=== PATIENT | female | born 1985 | race Caucasian/White ===

== ENCOUNTER → 2021-04-15 | Day surgery (SDC) | payer OTHER ==
[~2021-04-15] MED LIST: COLACE 100MG C100 MG PO; IBUPROFEN600 MG PO; LORTAB 5-325 M1 EACH PO; MAGOX 400400 MG PO; PRENATAL VITAM1 EAC8 PO; TYLENOL 500 MG500 MG PO
[2021-04-15 11:34] LABS: HEMOGLOBIN 14.5 gm/dl (12.3-15.3); RED BLOOD COUNT 5.1 M/UL (4.00-5.10); WHITE BLOOD COUNT 4.9 K/UL (4.5-11.0)
== END | disposition home or self-care (01) ==
LOC: OR 08:15
PROVIDERS: Obstetrics & Gynecology
DX: N80.4 Endometriosis of rectovaginal septum and vagina (principal); G89.18 Other acute postprocedural pain; K21.9 Gastro-esophageal reflux disease without esophagitis; F17.210 Nicotine dependence, cigarettes, uncomplicated; Z86.16 Personal history of COVID-19; Z88.5 Allergy status to narcotic agent; Z91.040 Latex allergy status
CPT/HCPCS: 36415; 81001; 84703; 85025; C1769; J1100; J1170; J2001; J2250; J2405; J2704; J7050; J7120